=== PATIENT | male | born 1935 | race Caucasian/White ===

== ENCOUNTER 2017-01-15 06:38 | Inpatient (IN) | payer MEDICARE, OTHER ==
[~2017-01-15] VITALS: Ht 175.3 cm; Wt 83.0 kg
[~2017-01-15 06:38] MED LIST: COLACE100 MG PO; JALYN 0.5-0.41 EACH PO; LEVAQUIN500 MG PO; NAPROSYN500 MG PO; OMEPRAZOLE40 MG PO; PRAVACHOL20 MG PO
[2017-01-15 07:05] LABS: BASO % 0.2 % (0.2-1.2); EOS % 0.2 % (0.8-7.0); GRAN # 11.7 10_X3_uL (1.8-5.4); GRAN % 90.8 % (34.0-67.9); HEMATOCRIT 46.8 % (40-51); HEMOGLOBIN 15.8 g/dL (13.7-17.5); LYMPH # 0.6 10_X3_uL (1.3-3.6); LYMPH % 4.3 % (21.8-53.1); MEAN CORPUSCULAR HGB CONC 33.8 g/dL (32.0-36.0); MEAN PLATELET VOLUME 12.3 fl (7.5-11.5); MONO # 0.6 10_X3_uL (0.3-0.8); MONO % 4.5 % (5.3-12.2); PLATELET COUNT 120 x10_3/uL (163-337); RED BLOOD COUNT 5.44 x10_6/uL (4.6-6.1); RED CELL DISTRIBUTION WIDTH 13.8 % (11.6-14.4); WHITE BLOOD COUNT 12.9 x10_3/uL (4.2-9.1)
[2017-01-15 07:21] LABS: INR 1.1 (1.0-1.1); PARTIAL THROMBOPLASTIN TIME 24.5 SECONDS (21.8-28.4); PROTHROMBIN TIME (PATIENT) 10.6 SECONDS (9.6-10.8)
[2017-01-15 07:24] LABS: ALBUMIN 4.1 gm/dL (3.4-5.0); ALKALINE PHOSPHATASE 82 U/L (50-136); ALT/SGPT 10 U/L (7.53-40.17); AST/SGOT 15 U/L (6.66-35.34); BILIRUBIN,TOTAL 0.45 mg/dL (0.0-1.0); BLOOD UREA NITROGEN 22 mg/dL (7-18); CALCIUM 9.3 mg/dL (8.7-10.7); CARBON DIOXIDE 21 mmol/L (21-32); CREATININE 1.1 mg/dL (0.6-1.3); GLUCOSE,RANDOM 188 mg/dL (70-99); POTASSIUM 4.3 mmol/L (3.5-5.1); SODIUM 138 mmol/L (136-145); TOTAL PROTEIN 7.4 gm/dL (6.4-8.2)
[2017-01-15 07:47] LABS: AMYLASE 3072 U/L (15.62-74.58); LIPASE > 300 U/L (6.75-60.75)
[2017-01-16 06:40] LABS: AMYLASE 1123 U/L (15.62-74.58); BLOOD UREA NITROGEN 21 mg/dL (7-18); CALCIUM 8.4 mg/dL (8.7-10.7); CARBON DIOXIDE 24 mmol/L (21-32); CREATININE 0.7 mg/dL (0.6-1.3); GLUCOSE,RANDOM 112 mg/dL (70-99); POTASSIUM 4.2 mmol/L (3.5-5.1); SODIUM 137 mmol/L (136-145)
[2017-01-16 07:32] LABS: LIPASE > 300 U/L (6.75-60.75)
[2017-01-17 07:04] LABS: MEAN CORPUSCULAR HGB CONC 33.3 g/dL (32.0-36.0); MEAN CORPUSCULAR VOLUME 86.9 fL (79-92); MEAN PLATELET VOLUME 12.5 fl (7.5-11.5); RED BLOOD COUNT 4.49 x10_6/uL (4.6-6.1); WHITE BLOOD COUNT 14.2 x10_3/uL (4.2-9.1)
[2017-01-17 07:08] LABS: ALKALINE PHOSPHATASE 62 U/L (50-136); ALT/SGPT 7 U/L (7.53-40.17); AMYLASE 477 U/L (15.62-74.58); AST/SGOT 16 U/L (6.66-35.34); BILIRUBIN,TOTAL 0.79 mg/dL (0.0-1.0); BLOOD UREA NITROGEN 17 mg/dL (7-18); CALCIUM 7.9 mg/dL (8.7-10.7); CARBON DIOXIDE 23 mmol/L (21-32); CREATININE 0.6 mg/dL (0.6-1.3); GLUCOSE,RANDOM 101 mg/dL (70-99); LIPASE 121 U/L (6.75-60.75); POTASSIUM 3.7 mmol/L (3.5-5.1); SODIUM 133 mmol/L (136-145); TOTAL PROTEIN 5.7 gm/dL (6.4-8.2)
[2017-01-17 14:31] LABS: URINE BILIRUBIN NEGATIVE (NEGATIVE); URINE BLOOD NEGATIVE (NEGATIVE); URINE GLUCOSE (UA) NORMAL (NORMAL); URINE KETONE 3+ (NEGATIVE); URINE LEUKOCYTE ESTERASE TRACE (NEGATIVE); URINE NITRATE NEGATIVE (NEGATIVE); URINE PROTEIN 1+ (NEGATIVE)
[2017-01-17 14:51] LABS: URINE BACTERIA TRACE (NONE SEEN); URINE MUCUS TRACE; URINE RBC 0-5 /[HPF] (0-2); URINE SQUAMOUS EPITHELIAL CELL 0-10 /[HPF] (NONE SEEN); URINE WBC >15 /[HPF] (0-3)
[2017-01-18 06:42] LABS: HEMOGLOBIN 12.3 g/dL (13.7-17.5); MEAN CORPUSCULAR HEMOGLOBIN 29.6 pg (27.0-33.0); MEAN CORPUSCULAR HGB CONC 34.2 g/dL (32.0-36.0); MEAN CORPUSCULAR VOLUME 86.5 fL (79-92); MEAN PLATELET VOLUME 12.3 fl (7.5-11.5); RED BLOOD COUNT 4.16 x10_6/uL (4.6-6.1); RED CELL DISTRIBUTION WIDTH 13.6 % (11.6-14.4); WHITE BLOOD COUNT 12.5 x10_3/uL (4.2-9.1)
[2017-01-18 07:09] LABS: ALKALINE PHOSPHATASE 89 U/L (50-136); ALT/SGPT 8 U/L (7.53-40.17); AMYLASE 171 U/L (15.62-74.58); AST/SGOT 17 U/L (6.66-35.34); BILIRUBIN,TOTAL 0.88 mg/dL (0.0-1.0); BLOOD UREA NITROGEN 13 mg/dL (7-18); CALCIUM 8.2 mg/dL (8.7-10.7); CARBON DIOXIDE 21 mmol/L (21-32); CREATININE 0.6 mg/dL (0.6-1.3); GLUCOSE,RANDOM 95 mg/dL (70-99); LIPASE 42 U/L (6.75-60.75); MAGNESIUM 1.9 mg/dL (1.8-2.4); POTASSIUM 3.5 mmol/L (3.5-5.1); SODIUM 133 mmol/L (136-145); TOTAL PROTEIN 5.9 gm/dL (6.4-8.2)
[2017-01-19 07:24] LABS: HEMATOCRIT 36.2 % (40-51); HEMOGLOBIN 12.2 g/dL (13.7-17.5); MEAN CORPUSCULAR HEMOGLOBIN 28.7 pg (27.0-33.0); MEAN CORPUSCULAR HGB CONC 33.7 g/dL (32.0-36.0); MEAN CORPUSCULAR VOLUME 85.2 fL (79-92); MEAN PLATELET VOLUME 12.1 fl (7.5-11.5); RED BLOOD COUNT 4.25 x10_6/uL (4.6-6.1); RED CELL DISTRIBUTION WIDTH 13.3 % (11.6-14.4); WHITE BLOOD COUNT 11.2 x10_3/uL (4.2-9.1)
[2017-01-19 07:54] LABS: ALBUMIN 2.8 gm/dL (3.4-5.0); ALKALINE PHOSPHATASE 112 U/L (50-136); ALT/SGPT 9 U/L (7.53-40.17); AMYLASE 118 U/L (15.62-74.58); AST/SGOT 19 U/L (6.66-35.34); BLOOD UREA NITROGEN 12 mg/dL (7-18); CALCIUM 8.2 mg/dL (8.7-10.7); CARBON DIOXIDE 23 mmol/L (21-32); CREATININE 0.6 mg/dL (0.6-1.3); GLUCOSE,RANDOM 97 mg/dL (70-99); LIPASE 49 U/L (6.75-60.75); MAGNESIUM 1.9 mg/dL (1.8-2.4); POTASSIUM 3.5 mmol/L (3.5-5.1); SODIUM 134 mmol/L (136-145); TOTAL PROTEIN 5.7 gm/dL (6.4-8.2)
[2017-01-20 07:06] LABS: HEMATOCRIT 35.2 % (40-51); HEMOGLOBIN 12.2 g/dL (13.7-17.5); MEAN CORPUSCULAR HGB CONC 34.7 g/dL (32.0-36.0); MEAN CORPUSCULAR VOLUME 83.6 fL (79-92); MEAN PLATELET VOLUME 11.7 fl (7.5-11.5); RED BLOOD COUNT 4.21 x10_6/uL (4.6-6.1); RED CELL DISTRIBUTION WIDTH 13.3 % (11.6-14.4); WHITE BLOOD COUNT 11.4 x10_3/uL (4.2-9.1)
[2017-01-20 07:21] LABS: ALBUMIN 2.7 gm/dL (3.4-5.0); ALKALINE PHOSPHATASE 86 U/L (50-136); ALT/SGPT 13 U/L (7.53-40.17); AMYLASE 120 U/L (15.62-74.58); AST/SGOT 19 U/L (6.66-35.34); BILIRUBIN,TOTAL 0.64 mg/dL (0.0-1.0); BLOOD UREA NITROGEN 9 mg/dL (7-18); CALCIUM 8.2 mg/dL (8.7-10.7); CARBON DIOXIDE 22 mmol/L (21-32); CREATININE 0.5 mg/dL (0.6-1.3); GLUCOSE,RANDOM 116 mg/dL (70-99); LIPASE 73 U/L (6.75-60.75); POTASSIUM 3.3 mmol/L (3.5-5.1); SODIUM 134 mmol/L (136-145); TOTAL PROTEIN 5.9 gm/dL (6.4-8.2)
== END 2017-01-20 11:27 | disposition home or self-care (01) | DRG 440 ==
LOC: ER 06:38 → MS 09:46 → UNDODEPER 01-16 15:37 → MS 01-20 11:27
PROVIDERS: Emergency Medicine; Family Medicine; ADMIT Family Medicine
DX: K85.90 Acute pancreatitis without necrosis or infection, unspecified (principal); R33.9 Retention of urine, unspecified; D64.9 Anemia, unspecified; D69.6 Thrombocytopenia, unspecified; E83.51 Hypocalcemia; I10 Essential (primary) hypertension; R11.2 Nausea with vomiting, unspecified; J44.9 Chronic obstructive pulmonary disease, unspecified; K21.9 Gastro-esophageal reflux disease without esophagitis; N40.0 Benign prostatic hyperplasia without lower urinary tract symptoms; Z79.899 Other long term (current) drug therapy; R10.11 Right upper quadrant pain
CPT/HCPCS: 36415; 76705; 80048; 80053; 80061; 81001; 82150; 82962; 83036; 83605; 83690; 83735; 85025; 85610; 85730; 87040; 87086; 96361; 96365; 96375; 99070; 99284; 99285-25; J1170

== ENCOUNTER 2017-01-15 06:38 | Emergency (ER) | payer MEDICARE, OTHER | END 2017-01-15 09:46 | disposition other institution (70) | LOC: ER 06:38 | DX: K85.90 Acute pancreatitis without necrosis or infection, unspecified (principal); R11.2 Nausea with vomiting, unspecified; I10 Essential (primary) hypertension; Z79.899 Other long term (current) drug therapy | CPT/HCPCS: 99284; 99285-25 ==